=== PATIENT | female | born 1955 | race Caucasian/White ===

== ENCOUNTER 2022-12-05 19:02 | Observation (INO) | payer MEDICARE, BC, SELFPAY ==
[2022-12-05] VITALS (23 sets, daily range): BP systolic 135–190; BP diastolic 78–110; PULSE 73–95; RESP 16; TEMP 36.1; O2SAT 90–99; BMI 23.4
--- NOTE | 2022-12-05 19:29 | CRLHL7_ITS ---
For Patients: As a result of the Century Cures Act, medical imaging exams and procedure reports are released immediately into your electronic medical record. You may view this report before your referring provider. If you have questions, please contact your health care provider. INDICATION: Tingling in the arms and face. COMPARISON: None available. TECHNIQUE: CT examination of the head was performed with 3 mm thick axial and 2 mm thick coronal and sagittal sections without intravenous contrast. Images were obtained from the vertex of the skull through the skull base, and I examined the images with the brain and bone windows. Please note that all CT scans at this facility use dose modulation, iterative reconstruction, and/or weight-based dosing when appropriate to reduce radiation dose to as low as reasonably achievable. FINDINGS: : There is mild dilatation of the ventricles and sulci representing age-appropriate atrophy. There is mild periventricular and subcortical white matter hypodensity representing age-appropriate small vessel ischemia. The brain is otherwise normal in appearance for the patient`s age on today`s study, with no sign of mass lesion, mass effect, hemorrhage, or edema. Incidental note is made of heavy focal calcification of the anterior falx, of no clinical concern. There are changes of right cataract surgery. The left orbit is normal in appearance. There is mild mucosal thickening in the left maxillary sinus from mild chronic sinusitis. The rest of the visualized portions of the paranasal sinuses and mastoids are clear. The osseous structures are normal in their appearance with no sign of abnormality in the skull base or calvarium. IMPRESSION: Normal noncontrast CT appearance of the brain for the patient`s age. Mild, age-appropriate atrophy and mild, age-appropriate small-vessel ischemic change. Please note that all CT scans at this facility use dose modulation, iterative reconstruction, and/or weight-based dosing when appropriate to reduce radiation dose to as low as reasonably achievable. Dictated by Fidel Mancera MD @ 12/05/2022 7:57:23 PM (Electronically Signed)
--- NOTE | 2022-12-05 19:29 | CRLHL7_ITS ---
For Patients: As a result of the Century Cures Act, medical imaging exams and procedure reports are released immediately into your electronic medical record. You may view this report before your referring provider. If you have questions, please contact your health care provider. DATE: 12/05/2022. CLINICAL HISTORY: Tingling in upper extremities and face. TECHNIQUE: Standard helical CT image acquisition through the head and neck was performed after intravenous contrast bolus enhancement. Multiplanar reconstructed images were performed and interpreted. COMPARISON: None available. FINDINGS: The origins of the great vessels from the aortic arch are patent. The origins of the right and left vertebral arteries are patent. The common carotid arteries are patent. No significant luminal stenoses of the proximal internal carotid arteries by NASCET criteria. The more distal cervical segments of the internal carotid arteries are patent. The cervical segments of the vertebral arteries are patent. No intracranial proximal large vessel occlusion or flow-limiting luminal stenosis. No evidence of cerebral aneurysm or findings to suggest an arteriovenous shunting lesion. IMPRESSION: 1. No intracranial proximal large vessel occlusion or flow-limiting luminal stenosis. 2. Patent cervical arterial vasculature without hemodynamically significant luminal stenosis. Please note that all CT scans at this facility use dose modulation, iterative reconstruction, and/or weight-based dosing when appropriate to reduce radiation dose to as low as reasonably achievable. Dictated by Thiago France MD @ 12/06/2022 11:34:16 AM (Electronically Signed)
--- NOTE | 2022-12-05 19:32 | ED.NURSE ---
Patient to CT via wheelchair.
[2022-12-05] MEDS: ASPIRIN 81 MG TAB.CHEW 324 MG PO (20:16)
--- NOTE | 2022-12-05 20:26 | ED.NURSE ---
Patient reports symptoms started at 1700 and last till approximately 1830. She states they have nearly resolved by the time she arrived but continues to have tingling near her mouth and her left finger tips. Sensation is intact.
[2022-12-05] MEDS: SODIUM CHLORIDE 0.9 % (FLUSH) 10 ML SYRINGE 5 ML IVF (20:38)
--- NOTE | 2022-12-05 20:39 | ED.NURSE ---
20:15: Patient passed swallow screening.
[2022-12-05 20:42] LABS: Chloride* 100 mmol/L (96-114); Sodium* 135 mmol/L (135-149)
[2022-12-05 20:44] LABS: Basophils Absolute Auto 0.02 K/uL (0.00-0.30); Basophils Percent Auto 0.3 % (0.0-3.0); Eosinophils Absolute Auto 0.09 K/uL (0.00-0.50); Eosinophils Percent Auto 1.5 % (0.0-7.0); Hematocrit 42.2 % (33.0-51.0); Hemoglobin* 14.1 gm/dL (12.0-16.0); Immature Granulocytes Abs Auto 0.04 K/uL (0.00-0.30); Immature Granulocytes Pct Auto 0.7 %; Lymphocytes Absolute Auto 1.64 K/uL (0.90-2.90); Lymphocytes Percent Auto 27.9 % (20-44); Mean Corpuscular HGB Conc 33 gm/dL (32-36); Mean Corpuscular Hemoglobin 34 pg (26-34); Mean Corpuscular Volume 101 fL (80-100); Monocytes Percent Auto 9.2 % (0.0-11.0); Neutrophils Absolute Auto 3.55 K/uL (1.7-7.0); Neutrophils Percent Auto 60.4 % (42.0-72.0); Platelet Count* 245 K/uL (140-440); RDW Coefficient of Variation % 12.4 % (11.5-15.5); Red Blood Count 4.19 m/uL (4.00-5.20); Slide Review Reflex No; White Blood Count* 5.88 K/uL (4.50-11.00)
[2022-12-05 20:45] LABS: Blood Urea Nitrogen* 22 mg/dL (7-30); Calcium* 9.8 mg/dL (8.4-10.6); Carbon Dioxide* 26 mmol/L (20-32); Estimated Glomerular Filt Rate 63 ml/min; Glucose* 116 mg/dL (60-115); Potassium* 3.9 mmol/L (3.6-5.1)
[2022-12-05 20:48] LABS: INR 0.88 (0.91-1.10); Prothrombin Time 12.5 Seconds
--- NOTE | 2022-12-05 20:48 | ED.NURSE ---
Patient pressed call light and reported redness/increased tingling to fingers 3-5. She states the tingling is intermittent to the fingers. Fingers appear mildly red on assessment. CMS intact. Will continue to monitor.
[2022-12-05 20:49] LABS: Partial Thromboplastin Time* 28 Seconds (23-33)
[2022-12-05 21:09] LABS: PCR FLU A Negative PCR FLU A (Negative); PCR FLU B Negative PCR FLU B (Negative); PCR RSV Negative PCR RSV (Negative)
[2022-12-05 21:10] LABS: SARS PCR* Negative SARS-CoV-2 (Negative)
[2022-12-05 21:15] LABS: Troponin I* < 0.01 ng/mL (0.01-0.04)
--- NOTE | 2022-12-05 21:38 | ED_ITS ---
HPI - Neuro Symptoms/Deficit General Date Seen: 12/05/22 Chief Complaint: Neuro Symptoms/Altered Deficit Stated Complaint: Left side and face going numb Time Seen by Provider: 12/05/22 19:56 Source: patient and family Mode of arrival: ambulatory Limitations: no limitations History of Present Illness HPI Narrative: Patient is a 67-year-old female who presents 45 minutes after she had onset of left facial altered sensation left arm altered sensation, this is not noted to be with the weakness, she was not slurring her words, and there is no facial asymmetry noted with this, she was actually doing dishes when this occurred, she did not drop the dishes just noted that through her left non dominant arm that she had this weird feeling. She describes it as numbness and tingling, and has been pretty well totally resolved at this point. Total time being like this was approximately 1-1/2 hours. She has never before had this this was not associated with any chest pain, headache, visual disturbances, speech issues, shaking, or other issue. She does have a history of hypertension is no previous history of stroke but a family member her father had a stroke at age 70. She is a retired nurse. Timing confirmed by: spouse and family member Location: left face and left arm History of same: No Severity: mild Quality: numb and tingling Relieving factors: time Exacerbating factors: none Context: sudden onset On Anticoagulants: No Associated symptoms: denies other symptoms Treatments Prior to Arrival: none Related Data Home Medications Medication Instructions Recorded Confirmed amlodipine 2.5 mg tablet 2.5 mg PO DAILY 12/05/22 12/05/22 atorvastatin 10 mg tablet 5 mg PO HS 12/05/22 12/05/22 calcium carbonate-vitamin D3 1 tab PO BID 12/05/22 12/05/22 levothyroxine 112 mcg tablet 112 mcg PO DAILY 12/05/22 12/05/22 losartan 50 mg tablet 50 mg PO DAILY 12/05/22 12/05/22 meloxicam 15 mg tablet 15 mg PO DAILY 12/05/22 12/05/22 omeprazole 20 mg capsule,delayed 20 mg PO BID 12/05/22 12/05/22 release Allergies Allergy/AdvReac Type Severity Reaction Status Date / Time Penicillins Allergy Severe Anaphylaxis Verified 12/05/22 19:17 erythromycin base Allergy Mild rash Verified 12/05/22 19:17 Review of Systems Status of ROS: Reports: 10 or more systems reviewed and unremarkable except as noted in History and below Exam Narrative: Exam Narrative: Patient is S peaking normally, no problem with slurring words, oriented x3. Head eyes ears nose and throat exam show equal pupils, no scleral icterus, extraocular muscles are normal, no facial droop, speech is normal, trachea normal and midline. Patient able to whistle with no problems at all, her speech is otherwise normal, person place and time is totally normal. Thyroid normal midline palpable not enlarged. Chest shows symmetrical rise bilaterally, normal auscultation with no wheezes, no increased work of breathing, no overt bruising or lesions seen, no tenderness is noted on auscultation. Heart sounds normal with no S3-S4 no murmurs clicks or gallops. Abdomen shows no obvious masses or hepatosplenomegaly, no organomegaly, bowel sounds are normal in all quadrants. No tenderness is noted also in all quadrants. Upper and lower extremities show normal power, normal range of motion, pulses are normal, sensations normal, fine motor movements are normal, pelvis is stable to rocking. Cervical spine shows normal range of motion, and palpably not tender. Thoracic spine shows normal range of motion, and palpably not tender, lumbar spine shows no tenderness to palpation percussion and is otherwise normal range of motion. Skin shows no rashes, petechiae or eccymosis. No pronator drift is noted, and she has good strength in upper lower extremities. Stroke scale is 0 Const: Vital Signs, click to edit/add: Vital Signs - 24 hr 12/05/22 19:11 12/05/22 20:00 12/05/22 20:15 Temperature 97.0 F L Pulse Rate Pulse Rate [Right Pulse Oximeter] 82 87 75 Respiratory Rate 16 16 16 Blood Pressure Blood Pressure [Ri ght Upper Arm] 190/97 H 180/104 H 157/94 H Pulse Oximetry 97 99 92 Oxygen Delivery Me thod Room Air Room Air 12/05/22 20:25 12/05/22 20:38 12/05/22 20:45 Temperature Pulse Rate 81 73 79 Pulse Rate [Right Pulse Oximeter] Respiratory Rate Blood Pressure Blood Pressure [Ri ght Upper Arm] Pulse Oximetry 93 94 93 Oxygen Delivery Me thod 12/05/22 20:47 12/05/22 20:48 12/05/22 21:00 Temperature Pulse Rate 90 91 80 Pulse Rate [Right Pulse Oximeter] Respiratory Rate 16 Blood Pressure 141/79 H Blood Pressure [Ri ght Upper Arm] Pulse Oximetry 95 95 91 Oxygen Delivery Me thod Room Air 12/05/22 21:02 12/05/22 21:15 12/05/22 21:17 Temperature Pulse Rate 86 87 85 Pulse Rate [Right Pulse Oximeter] Respiratory Rate 16 Blood Pressure 157/95 H 136/78 Blood Pressure [Ri ght Upper Arm] Pulse Oximetry 95 90 94 Oxygen Delivery Me thod Room Air 12/05/22 21:30 12/05/22 21:32 12/05/22 21:45 Temperature Pulse Rate 83 95 81 Pulse Rate [Right Pulse Oximeter] Respiratory Rate Blood Pressure 165/90 H Blood Pressure [Ri ght Upper Arm] Pulse Oximetry 92 94 92 Oxygen Delivery Me thod 12/05/22 22:00 12/05/22 22:02 Temperature Pulse Rate 82 89 Pulse Rate [Right Pulse Oximeter] Respiratory Rate Blood Pressure 135/110 H Blood Pressure [Ri ght Upper Arm] Pulse Oximetry 94 96 Oxygen Delivery Me thod Documenting provider has reviewed patient's vital signs: yes Course Course Hospital Course: Head CT and CTA were negative per Radiology. I spoke to Stroke Neuro at [facility], Dr. Hansen, he favored a diagnosis of TIA, with the resolution, he said most times a like to keep these overnight, and get MRI in the morning given the time course of 1-1/2 hours, but he would also be okay with outpatient workup, if she totally resolved and was comfortable with this. Went back in and talked to patient she had just a slight bit of numbness around her lips on the left side, but otherwise was back to a baseline. This is 1-1/2 hours after onset. Reevaluation(s) Reevaluation #1: Patient says she has 1/10 it tingling on her face, this is improved from the 8/10 tingling on her face and her left arm she had initially, she has no ext remity symptoms now, feels much improved, I went over her laboratory tests with her. At this point, given the Stroke Neuro suggestion we will admit her to the hospital, I spoke to Dr. Velasquez from Hospital Medicine, relayed suggestions from Stroke Neuro, for MRI tomorrow, along with workup up the neck, an echo. I do agree that it seemed like 325 of aspirin a day was a bit of a large dose going forward, we can confirm with Neurology tomorrow. Patient is in agreement with this plan. Vital Signs Vital signs: Initial Vital Signs Temperature 97.0 F L 12/05/22 19:11 Temperature Source Temporal Artery Scan 12/05/22 19:11 Pulse Rate 82 12/05/22 19:11 Respiratory Rate 16 12/05/22 19:11 Blood Pressure 190/97 H 12/05/22 19:11 Blood Pressure Mean 128 12/05/22 19:11 Blood Pressure Position Sitting 12/05/22 19:11 Pulse Oximetry 97 12/05/22 19:11 Oxygen Delivery Method 12/05/22 19:11 Vital Signs Temperature 97.0 F L 12/05/22 19:11 Pulse Rate 82 12/05/22 19:11 Respiratory Rate 16 12/05/22 19:11 Blood Pressure 190/97 H 12/05/22 19:11 Pulse Oximetry 97 12/05/22 19:11 Oxygen Delivery Method 12/05/22 19:11 Temperature 97.0 F L 12/05/22 19:11 Pulse Rate 89 12/05/22 22:02 Respiratory Rate 16 12/05/22 21:17 Blood Pressure 135/110 H 12/05/22 22:02 Pulse Oximetry 96 12/05/22 22:02 Oxygen Delivery Method 12/05/22 21:17 MDM - Neuro Symptoms/Deficit MDM Narrative Medical decision making narrative: Multiple differential diagnoses were considered for altered mental status. The life-threatening differential diagnosis considered include: Meningitis/encephalitis, bacteremia, subdural, cerebrovascular accident, SAH, and hypertensive encephalopathy. Other differential diagnosis included include medication effect, hypoxia, hypoglycemia, hypercalcemia, hypo or hypernatremia, hypothyroidism, hepatic encephalopathy, carbon monoxide poisoning, UTI, pneum onia, depression, seizure, as well as other etiologies. Medical Records Attestation: I reviewed the patient's medical records. Lab Data Attestation: I reviewed the patient's lab results. Labs: Lab Results 12/05/22 12/05/22 12/05/22 Range/Units 20:00 20:16 20:16 WBC 5.88 (4.50-11.00) K/uL RBC 4.19 (4.00-5.20) m/uL Hgb 14.1 (12.0-16.0) gm/dL Hct 42.2 (33.0-51.0) % MCV 101 H (80-100) fL MCH 34 (26-34) pg MCHC 33 (32-36) gm/dL RDW Coeff of Leonela 12.4 (11.5-15.5) % Plt Count 245 (140-440) K/uL Neut % (Auto) 60.4 (42.0-72.0) % Lymph % (Auto) 27.9 (20-44) % Ransom % (Auto) 9.2 (0.0-11.0) % Eos % (Auto) 1.5 (0.0-7.0) % Baso % (Auto) 0.3 (0.0-3.0) % Neut # (Auto) 3.55 (1.7-7.0) K/uL Lymph # (Auto) 1.64 (0.90-2.90) K/uL Ransom # (Auto) 0.50 (0.00-0.90) K/UL Eos # (Auto) 0.09 (0.00-0.50) K/uL Baso # (Auto) 0.02 (0.00-0.30) K/uL INR (0.91-1.10) APTT (23-33) Seconds Sodium 135 (135-149) mmol/L Potassium 3.9 (3.6-5.1) mmol/L Chloride 100 (96-114) mmol/L Carbon Dioxide 26 (20-32) mmol/L BUN 22 (7-30) mg/dL Creatinine 1.0 (0.5-1.5) mg/dL Estimated Creat Clear 46.40 Estimated GFR 63 ml/min Glucose 116 H (60-115) mg/dL Calcium 9.8 (8.4-10.6) mg/dL Troponin I < 0.01 L (0.01-0.04) ng/mL SARS-CoV-2 (PCR) (Negative) Influenza Type A (PCR) (Negative) Influenza Type B (PCR) (Negative) RSV (PCR) (Negative) 12/05/22 12/05/22 Range/Units 20:17 20:20 WBC (4.50-11.00) K/uL RBC (4.00-5.20) m/uL Hgb (12.0-16.0) gm/dL Hct (33.0-51.0) % MCV (80-100) fL MCH (26-34) pg MCHC (32-36) gm/dL RDW Coeff of Leonela (11.5-15.5) % Plt Count (140-440) K/uL Neut % (Auto) (42.0-72.0) % Lymph % (Auto) (20-44) % Ransom % (Auto) (0.0-11.0) % Eos % (Auto) (0.0-7.0) % Baso % (Auto) (0.0-3.0) % Neut # (Auto) (1.7-7.0) K/uL Lymph # (Auto) (0.90-2.90) K/uL Ransom # (Auto) (0.00-0.90) K/UL Eos # (Auto) (0.00-0.50) K/uL Baso # (Auto) (0.00-0.30) K/uL INR 0.88 L (0.91-1.10) APTT 28 (23-33) Seconds Sodium (135-149) mmol/L Potassium (3.6-5.1) mmol/L Chloride (96-114) mmol/L Carbon Dioxide (20-32) mmol/L BUN (7-30) mg/dL Creatinine (0.5-1.5) mg/dL Estimated Creat Clear Estimated GFR ml/min Glucose (60-115) mg/dL Calcium (8.4-10.6) mg/dL Troponin I (0.01-0.04) ng/mL SARS-CoV-2 (PCR) Negative SARS-CoV-2 (Negative) Influenza Type A (PCR) Negative PCR FLU A (Negative) Influenza Type B (PCR) Negative PCR FLU B (Negative) RSV (PCR) Negative PCR RSV (Negative) ECG Data Attestation: I personally reviewed and interpreted this ECG as follows: ECG interpretation date: 12/05/22 Interpretation: Normal sinus rhythm normal EKG no acute change Discharge Plan Discharge Clinical Impression: Transient cerebral ischemia Patient Disposition: Admitted As Inpatient Condition: Improved Prescriptions: No Action amlodipine 2.5 mg tablet 2.5 mg PO DAILY Label Comments: TAKE 1 TABLET (2.5 MG TOTAL) BY MOUTH DAILY. atorvastatin 10 mg tablet 5 mg PO HS Label Comments: TAKE 1/2 TABLET BY MOUTH AT BEDTIME calcium carbonate-vitamin D3 [Calcium 500 + D] 1 tab PO BID levothyroxine 112 mcg tablet 112 mcg PO DAILY Label Comments: TAKE ONE TABLET BY MOUTH ONCE DAILY losartan 50 mg tablet 50 mg PO DAILY Label Comments: TAKE 1 TABLET BY MOUTH EVERY DAY meloxicam 15 mg tablet 15 mg PO DAILY Label Comments: TAKE 1 TABLET (15 MG TOTAL) BY MOUTH DAILY. omeprazole 20 mg capsule,delayed release(DR/EC) 20 mg PO BID Label Comments: TAKE 1 CAPSULE (20 MG TOTAL) BY MOUTH 2 (TWO) TIMES A DAY BEFORE BREAKFAST AND DINNER. Follow Up/Referrals: Provider,Not a Local [Primary Care Provider] -
[2022-12-05] MEDS: LORazepam 0.5 MG TABLET PO (22:23)
--- NOTE | 2022-12-05 22:59 | ED.NURSE ---
Report to [facility]. Patient will be going to room 262.
--- NOTE | 2022-12-05 23:23 | P.IMHP_ITS ---
Hospitalist- H&P: HPI History of Present Illness Time Seen by Provider: 11:15 Date Seen: 12/06/22 Chief complaint: Left side and face going numb Narrative: Carey Chun is a 67 year old female with history of hypertension and hypercholesterolemia who developed sudden onset left-sided numbness and left arm tingling at 5:30 p.m.. She has never had anything like this before. She was feeling her usual self, making dinner, when she suddenly felt that the left side of her face was numb and her left arm felt tingly like it was going to fall asleep. She continued to make dinner and then sat down and ate a big meal. She had no difficulties swallowing or speaking. She had no confusion. After dinner she told her that she did not feel right and she came to the emergency department with these symptoms. Her symptoms started to improve while she was i n the ER. Currently she notes a tiny spot on her left upper lip that still feels numb and intermittent tingling of her fingertips of the left hand. She denies any other focal symptoms. She denies headache or vision changes. She denies chest pain or shortness of breath. She does have a history of anxiety and wondered if her symptoms were possibly consistent with that. She also has a history of hypertension and hypercholesterolemia. Few months ago she stopped taking atorvastatin because she was reading about cholesterol and decided that she did not need it. She is agreeable to go back on it even at higher dose and denies any history of adverse effects from it. Review of Systems Status of ROS: Reports: 10 or more systems reviewed and unremarkable except as noted in History and below PFSH PFS Medical History (Updated 12/05/22 @ 23:18 by Debbie Velasquez MD) Cataract Eczema GERD (gastroesophageal reflux disease) Hyperlipidemia Hypertension Hypothyroidism Surgical History (Updated 12/05/22 @ 23:18 by Debbie Velasquez MD) H/O section (~1978) S/P bunionectomy (~2005) S/P colonoscopy (03/29/22) Trigger finger, right Family History (Updated 12/05/22 @ 23:22 by Debbie Velasquez MD) Father Coronary artery disease Diabetes CHF (congestive heart failure) High cholesterol High blood pressure Renal cancer Skin cancer Aunt Breast cancer Aunt Breast cancer Mother Osteoporosis Arthritis Sister Cervical cancer Skin cancer Metastatic squamous cell carcinoma Sister Cancer Social History (Updated 12/06/22 @ 00:30 by Debbie Velasquez MD) Narrative: . , Atul, is here with her tonight. Exercises 6 days a week. Lifelong nonsmoker. 1-2 vodka drinks a night. Denies having any withdrawal symptoms if she goes without. Denies recreational drug use. Wishes to be a full code. Smoking Status: Never smoker Do you use any of these nicotine containing products: None Second hand tobacco smoke exposure: No How often do you have a drink containing alcohol: 4 or more times a week How many standard drinks containing alcohol do you have on a typical day: 1 or 2 How often do you have six or more drinks on one occasion: Never AUDIT-C Alcohol total score: 4 Non-prescribed substance use: denies use service: No Meds Home Medications and Allergies Home Medications Medication Instructions Recorded Confirmed Type amlodipine 2.5 mg tablet 2.5 mg PO DAILY 12/05/22 12/05/22 History atorvastatin 10 mg tablet 5 mg PO HS 12/05/22 12/05/22 History calcium carbonate-vitamin D3 1 tab PO BID 12/05/22 12/05/22 History levothyroxine 112 mcg tablet 112 mcg PO DAILY 12/05/22 12/05/22 History losartan 50 mg tablet 50 mg PO DAILY 12/05/22 12/05/22 History meloxicam 15 mg tablet 15 mg PO DAILY 12/05/22 12/05/22 History omeprazole 20 mg capsule,delayed 20 mg PO BID 12/05/22 12/05/22 History release Allergies Allergy/AdvReac Type Severity Reaction Status Date / Time Penicillins Allergy Severe Anaphylaxis Verified 12/05/22 19:17 erythromycin base Allergy Mild rash Verified 12/05/22 19:17 Exam Narrative: Exam Narrative: General: No acute distress. Awake alert oriented x3. HEENT: Normocephalic atraumatic, pupils equally round and reactive to light and accommodation. Oropharynx clear. Mucous membranes are moist. No cervical lymphadenopathy, thyromegaly or carotid bruits. No JVD. Cardiovascular: Regular rate and rhythm. No murmurs, gallops, or rubs. Chest: No increased work of breathing. Clear to auscultation bilaterally. No crackles or wheezes. Abdomen: Bowel sounds present. Soft, nondistended, nontender. No hepat osplenomegaly or masses. Extremities: No edema, no cyanosis or clubbing. Skin: No jaundice, no pallor, no rashes. Neuro: She herself notes numbness at the left upper lip, not currently having left finger tip tingling. There are no other focal deficits. Romberg is negative. Cranial nerves 2-12 are intact. Extraocular movements are full. No nystagmus. No facial asymmetry. Tongue is midline. Peripheral vision and vision are grossly intact. Strength is 5/5 in all 4 extremities. Light touch sensation is intact in face body and extremities. Coordination is intact in upper and lower extremities. Const: Vital Signs, click to edit/add: Vital Signs - 24 hr 12/05/22 19:11 12/05/22 20:00 12/05/22 20:15 Temperature 97.0 F L Pulse Rate Pulse Rate [Right Pulse Oximeter] 82 87 75 Respiratory Rate 16 16 16 Blood Pressure Blood Pressure [Ri ght Upper Arm] 190/97 H 180/104 H 157/94 H Pulse Oximetry 97 99 92 Oxygen Delivery Me thod Room Air Room Air 12/05/22 20:25 12/05/22 20:38 12/05/22 20:45 Temperature Pulse Rate 81 73 79 Pulse Rate [Right Pulse Oximeter] Respiratory Rate Blood Pressure Blood Pressure [Ri ght Upper Arm] Pulse Oximetry 93 94 93 Oxygen Delivery Me thod 12/05/22 20:47 12/05/22 20:48 12/05/22 21:00 Temperature Pulse Rate 90 91 80 Pulse Rate [Right Pulse Oximeter] Respiratory Rate 16 Blood Pressure 141/79 H Blood Pressure [Ri ght Upper Arm] Pulse Oximetry 95 95 91 Oxygen Delivery Me thod Room Air 12/05/22 21:02 12/05/22 21:15 12/05/22 21:17 Temperature Pulse Rate 86 87 85 Pulse Rate [Right Pulse Oximeter] Respiratory Rate 16 Blood Pressure 157/95 H 136/78 Blood Pressure [Ri ght Upper Arm] Pulse Oximetry 95 90 94 Oxygen Delivery Me thod Room Air 12/05/22 21:30 12/05/22 21:32 12/05/22 21:45 Temperature Pulse Rate 83 95 81 Pulse Rate [Right Pulse Oximeter] Respiratory Rate Blood Pressure 165/90 H Blood Pressure [Ri ght Upper Arm] Pulse Oximetry 92 94 92 Oxygen Delivery Me thod 12/05/22 22:00 12/05/22 22:02 12/05/22 22:03 Temperature Pulse Rate 82 89 85 Pulse Rate [Right Pulse Oximeter] Respiratory Rate Blood Pressure 135/110 H Blood Pressure [Ri ght Upper Arm] Pulse Oximetry 94 96 92 Oxygen Delivery Me thod 12/05/22 22:15 12/05/22 22:30 12/05/22 22:31 Temperature Pulse Rate 81 84 82 Pulse Rate [Right Pulse Oximeter] Respiratory Rate 16 Blood Pressure 156/85 H Blood Pressure [Ri ght Upper Arm] Pulse Oximetry 94 94 90 Oxygen Delivery Me thod Room Air 12/05/22 22:45 Temperature Pulse Rate 76 Pulse Rate [Right Pulse Oximeter] Respiratory Rate Blood Pressure Blood Pressure [Ri ght Upper Arm] Pulse Oximetry 92 Oxygen Delivery Me thod Hospitalist - H&P: Result Labs Labs: Short CBC 12/05/22 Range/Units 20:16 WBC 5.88 (4.50-11.00) K/uL Hgb 14.1 (12.0-16.0) gm/dL Hct 42.2 (33.0-51.0) % Plt Count 245 (140-440) K/uL BMP 12/05/22 20:16 Sodium 135 Potassium 3.9 Chloride 100 Carbon Dioxide 26 BUN 22 Creatinine 1.0 Glucose 116 H Calcium 9.8 Cardiac Enzymes 12/05/22 Range/Units 20:00 Troponin I < 0.01 L (0.01-0.04) ng/mL 12/05/2022 7:53 p.m. EKG: Normal sinus rhythm. 86 beats per minute. Normal EKG. Ordering Physician: Arya Rojas M.D. Date of Service: 12/05/22 Procedure(s): CT head/brain wo con Accession Number(s): [id number] cc: Arya Rojas M.D.~ For Patients: As a result of the Century Cures Act, medical imaging exams and procedure reports are released immediately into your electronic medical record. You may view this report before your referring provider. If you have questions, please contact your health care provider. INDICATION: Tingling in the arms and face. COMPARISON: None available. TECHNIQUE: CT examination of the head was performed with 3 mm thick axial and 2 mm thick coronal and sagittal sections without intravenous contrast. Images were obtained from the vertex of the skull through the skull base, and I examined the images with the brain and bone windows. Please note that all CT scans at this facility use dose modulation, iterative reconstruction, and/or weight-based dosing when appropriate to reduce radiation dose to as low as reasonably achievable. FINDINGS: : There is mild dilatation of the ventricles and sulci representing age-appropriate atrophy. There is mild periventricular and subcortical white matter hypodensity representing age-appropriate small vessel ischemia. The brain is otherwise normal in appearance for the patient`s age on today`s study, with no sign of mass lesion, mass effect, hemorrhage, or edema. Incidental note is made of heavy focal calcification of the anterior falx, of no clinical concern. There are changes of right cataract surgery. The left orbit is normal in appearance. There is mild mucosal thickening in the left maxillary sinus from mild chronic sinusitis. The rest of the visualized portions of the paranasal sinuses and mastoids are clear. The osseous structures are normal in their appearance with no sign of abnormality in the skull base or calvarium. IMPRESSION: Normal noncontrast CT appearance of the brain for the patient`s age. Mild, age-appropriate atrophy and mild, age-appropriate small-vessel ischemic change. Please note that all CT scans at this facility use dose modulation, iterative reconstruction, and/or weight-based dosing when appropriate to reduce radiation dose to as low as reasonably achievable. Dictated by Fidel Mancera MD @ 12/05/2022 7:57:23 PM (Electronically Signed) Assessment and Plan Assessment and plan (1) Transient cerebral ischemia: Status: Acute (2) Hypertension: Status: Acute (3) Hyperlipidemia: Status: Acute (4) Hypothyroidism: Status: Acute Plan 67-year-old female with probable transient ischemic attack. CTA results are not finalized and I cannot view them, but Dr. Mon reported to me that they were unremarkable. CT head is unremarkable. EKG is normal sinus rhythm. Stroke neuro has recommended observation admission with telemetry, daily full-dose aspirin, and MRI. I have also ordered an echocardiogram and bilateral carotid ultrasound. I restarted her statin and will increase the dose as 5 was likely too low to be effective in the setting of stroke. I have also held her usual amlodipine to allow for permissive hypertension as her symptoms are not yet completely gone and I do not have the MRI results.
--- NOTE | 2022-12-05 23:28 | CRLHL7_ITS ---
For Patients: As a result of the Century Cures Act, medical imaging exams and procedure reports are released immediately into your electronic medical record. You may view this report before your referring provider. If you have questions, please contact your health care provider. INDICATION: Dizziness. TECHNIQUE: Multiplanar multisequence noncontrast MR images acquired through the brain. COMPARISON: CT brain 12/05/2022. FINDINGS: Punctate focus of diffusion restriction and FLAIR hyperintensity within the lateral right thalamus, compatible with acute to early subacute infarction. Prominence of the ventricles and sulci compatible with mild diffuse cerebral volume loss. No mass effect or midline shift. Scattered T2 FLAIR hyperintensities in the supratentorial white matter are nonspecific, though most typical for mild chronic microvascular ischemic changes. No intracranial hemorrhage or pathologic extra-axial fluid collection. The major arterial flow voids of the skullbase are preserved. Thinning of the right ocular lens. Mild lobulated left maxillary sinus mucosal thickening. Minimal mastoid fluid. IMPRESSION: 1. Punctate acute to early subacute infarction within the lateral right thalamus. 2. Mild chronic microvascular ischemic changes and diffuse cerebral volume loss. Dictated by Cresencio Sherman MD @ 12/06/2022 1:42:27 PM (Electronically Signed)
[2022-12-06 01:30] VITALS: PULSE 65
[2022-12-06] MEDS: LEVOTHYROXINE 112 MCG TABLET PO (07:13)
[2022-12-06 07:45] VITALS: BP 151/90; PULSE 82; RESP 16; TEMP 36.7; O2SAT 93
[2022-12-06] MEDS: ASPIRIN EC 325 MG TABLET PO (09:12)
[2022-12-06] MEDS: OMEPRAZOLE 20 MG CAPSULE DR PO (09:12)
[2022-12-06] MEDS: LOSARTAN POTASSIUM 50 MG TABLET PO (09:12)
--- NOTE | 2022-12-06 09:49 | PM.IMPN1 ---
Progress Note: A&P Assessment and plan (1) Transient cerebral ischemia: Problem details: CT reviewed. MRI brain this morning. Echo this afternoon. Starting statin of 20 mg daily today. Daily aspirin continuing. Likely will need outpatient follow-up to include Neurology and Cardiology. Telemetry has been quiet with normal sinus rhythm. Her blood pressures have been moderately elevated but within goal of arrest of hypertension. Her amlodipine is still on hold. She is taking her losartan. Status: Acute (2) Hypertension: Problem details: Holding amlodipine, continuing losartan. Allowing for permissive hypertension. Status: Acute (3) Hyperlipidemia: Problem details: Atorvastatin 20 mg p.o. daily Status: Acute (4) Hypothyroidism: Problem details: TSH is at goal. Continue home levothyroxine dosing. Status: Acute Subjective Date Seen: 12/06/22 Interval history: Daily Progress Note - Hospital Medicine Day #: 2 CC: Neurologic concerns regarding left facial tingling, left hand tingling and weakness. Possible stroke versus TIA OVERNIGHT UPDATES FROM STAFF & MED, LAB, IMAGING UPDATES Patient has had near resolution of all of her ankle symptoms from yesterday. This morning she denies headache. No nausea. The only remaining symptom is a very subtle left upper lip numbness. No chest pain. She is ambulating back and forth to the bathroom without assistance. She is able to carry on a conversation this morning and expressing her concerns regarding her hospital stay. Head CT Normal noncontrast CT appearance of the brain for the patient`s age. Mild, age-appropriate atrophy and mild, age-appropriate small-vessel ischemic change. Normal CTA of the neck. Blood pressure is mildly elevated at 160 2/95. Pulse 65. Rest per 16. Afebrile. Room air sats are 92%. Yesterday she had a CBC that was essentially unremarkable. MCV was a little elevated at 101. Her electrolytes were all normal yesterday. Respiratory panel was negative. Troponin was undetectable. Objective: Vitals: see above Lungs: Clear. Cardiac: S1S2. Neuro: Cranial nerves intact. Strength, coordination, gait all assessed in the room this morning and are all normal. Mental status is normal. She was able to count the months backwards. She was able to interpret correctly colloquialisms like, you can teach an old dog new tricks and ?and ?if you live in a glass house do not throw rocks? Disposition/Potential discharge - Likely to return to previous living situation. Total time is 35 minutes with greater than 50% spent in counseling and coordination of care. Exam Const: Vital Signs, click to edit/add: Vital Signs - 24 hr 12/05/22 19:11 12/05/22 20:00 12/05/22 20:15 Temperature 97.0 F L Pulse Rate Pulse Rate [Right Pulse Oximeter] 82 87 75 Respiratory Rate 16 16 16 Blood Pressure Blood Pressure [Le ft Arm] Blood Pressure [Ri ght Upper Arm] 190/97 H 180/104 H 157/94 H Pulse Oximetry 97 99 92 Oxygen Delivery Me thod Room Air Room Air 12/05/22 20:25 12/05/22 20:38 12/05/22 20:45 Temperature Pulse Rate 81 73 79 Pulse Rate [Right Pulse Oximeter] Respiratory Rate Blood Pressure Blood Pressure [Le ft Arm] Blood Pressure [Ri ght Upper Arm] Pulse Oximetry 93 94 93 Oxygen Delivery Me thod 12/05/22 20:47 12/05/22 20:48 12/05/22 21:00 Temperature Pulse Rate 90 91 80 Pulse Rate [Right Pulse Oximeter] Respiratory Rate 16 Blood Pressure 141/79 H Blood Pressure [Le ft Arm] Blood Pressure [Ri ght Upper Arm] Pulse Oximetry 95 95 91 Oxygen Delivery Me thod Room Air 12/05/22 21:02 12/05/22 21:15 12/05/22 21:17 Temperature Pulse Rate 86 87 85 Pulse Rate [Right Pulse Oximeter] Respiratory Rate 16 Blood Pressure 157/95 H 136/78 Blood Pressure [Le ft Arm] Blood Pressure [Ri ght Upper Arm] Pulse Oximetry 95 90 94 Oxygen Delivery Me thod Room Air 12/05/22 21:30 12/05/22 21:32 12/05/22 21:45 Temperature Pulse Rate 83 95 81 Pulse Rate [Right Pulse Oximeter] Respiratory Rate Blood Pressure 165/90 H Blood Pressure [Le ft Arm] Blood Pressure [Ri ght Upper Arm] Pulse Oximetry 92 94 92 Oxygen Delivery Me thod 12/05/22 22:00 12/05/22 22:02 12/05/22 22:03 Temperature Pulse Rate 82 89 85 Pulse Rate [Right Pulse Oximeter] Respiratory Rate Blood Pressure 135/110 H Blood Pressure [Le ft Arm] Blood Pressure [Ri ght Upper Arm] Pulse Oximetry 94 96 92 Oxygen Delivery Me thod 12/05/22 22:15 12/05/22 22:30 12/05/22 22:31 Temperature Pulse Rate 81 84 82 Pulse Rate [Right Pulse Oximeter] Respiratory Rate 16 Blood Pressure 156/85 H Blood Pressure [Le ft Arm] Blood Pressure [Ri ght Upper Arm] Pulse Oximetry 94 94 90 Oxygen Delivery Me thod Room Air 12/05/22 22:45 12/05/22 23:43 12/06/22 01:30 Temperature Pulse Rate 76 65 Pulse Rate [Right Pulse Oximeter] Respiratory Rate Blood Pressure Blood Pressure [Le ft Arm] 162/95 H Blood Pressure [Ri ght Upper Arm] Pulse Oximetry 92 Oxygen Delivery Me thod Labs Labs: Laboratory Results - last 24 hr 12/05/22 12/05/22 12/05/22 20:00 20:16 20:16 WBC 5.88 RBC 4.19 Hgb 14.1 Hct 42.2 MCV 101 H MCH 34 MCHC 33 RDW Coeff of Leonela 12.4 Plt Count 245 Neut % (Auto) 60.4 Lymph % (Auto) 27.9 [place] % (Auto) 9.2 Eos % (Auto) 1.5 Baso % (Auto) 0.3 Neut # (Auto) 3.55 Lymph # (Auto) 1.64 [place] # (Auto) 0.50 Eos # (Auto) 0.09 Baso # (Auto) 0.02 INR APTT Sodium 135 Potassium 3.9 Chloride 100 Carbon Dioxide 26 BUN 22 Creatinine 1.0 Estimated Creat Clear 46.40 Estimated GFR 63 Glucose 116 H Calcium 9.8 Troponin I < 0.01 L SARS-CoV-2 (PCR) Influenza Type A (PCR) Influenza Type B (PCR) RSV (PCR) 12/05/22 12/05/22 20:17 20:20 WBC RBC Hgb Hct MCV MCH MCHC RDW Coeff of Leonela Plt Count Neut % (Auto) Lymph % (Auto) [place] % (Auto) Eos % (Auto) Baso % (Auto) Neut # (Auto) Lymph # (Auto) [place] # (Auto) Eos # (Auto) Baso # (Auto) INR 0.88 L APTT 28 Sodium Potassium Chloride Carbon Dioxide BUN Creatinine Estimated Creat Clear Estimated GFR Glucose Calcium Troponin I SARS-CoV-2 (PCR) Negative SARS-CoV-2 Influenza Type A (PCR) Negative PCR FLU A Influenza Type B (PCR) Negative PCR FLU B RSV (PCR) Negative PCR RSV
[2022-12-06 10:29] LABS: Albumin* 4.8 g/dL (3.3-5.0)
[2022-12-06 10:32] LABS: Alanine Aminotransferase* 22 U/L (4-35); Alkaline Phosphatase* 76 U/L (40-150); Aspartate Amino Transferase* 35 U/L (12-35); Bilirubin Direct* 0.5 mg/dL (0.0-0.5); Bilirubin Total* 0.6 mg/dL (0.1-1.5); Cholesterol* 288 mg/dL (90-199); Total Protein* 8.1 g/dL (6.0-8.3); Triglycerides* 128 mg/dL (40-149)
[2022-12-06] MEDS: SODIUM CHLORIDE 0.9 % (FLUSH) 10 ML SYRINGE 5 ML IVF (10:32)
[2022-12-06 11:00] VITALS: BP 134/76; PULSE 90; RESP 16; TEMP 36.8; O2SAT 96
[2022-12-06] MEDS: ATORVASTATIN 10 MG TABLET 20 MG PO (12:49)
[2022-12-06 12:53] LABS: HDL Cholesterol* 153 mg/dL (>=50); LDL Cholesterol Calculated 109 mg/dL (<100)
[2022-12-06 15:00] VITALS: BP 127/97; PULSE 53; PULSE 97; RESP 16; O2SAT 98
--- NOTE | 2022-12-06 15:08 | P.DS_ITS ---
DS: Providers Provider Date Seen: 12/06/22 Date of admission: 12/05/22 23:02 Primary care physician: Not a Local Provider Admitting Clinician: Debbie Velasquez MD Attending Physician on discharge: Samanta Rowland MD [facility] Date of Discharge: 12/06/22 DS: Diagnosis Discharge Diagnosis (1) Lacunar infarct, acute: Status: Acute Problem details: Punctate right lacunar infarct. Sensory symptoms only. Resolved. Spoke with [facility]. Recommendation is for Plavix load followed by aspirin 81 mg daily with 75 mg of Plavix for 21 days. Optimal blood pressure management - follow-up outpatient neurology and cardiovascular are for her hypertension. (2) Hypothyroidism: Status: Acute Problem details: TSH is at goal. Continue home levothyroxine dosing. (3) Hyperlipidemia: Status: Acute Problem details: Unique cholesterol panel. She HDL greater than 150. Normal LDL. We are holding on a statin at this time. This can be addressed by her stroke team as an outpatient. (4) Hypertension: Status: Acute Problem details: Restarting both of her home medications. We allowed for permissive hypertension overnight. I have given her counseling on how to initially observe her high blood pressure and different reactions to life events and timing of medications and exercise. She can continue to follow with Cardiovascular Medicine or PCP. DS: Summary Hospital Course Hospital Course: HOSPITALIST DISCHARGE SUMMARY ATTENDING PHYSICIAN: Samanta Rowland MD FINAL DIAGNOSIS: Right thalamic infarct, punctate, subacute. Chronic microvascular changes HOSPITAL FOLLOWUP ISSUES: Stroke Neurology did - secondary stroke prevention. On dual anti-platelet and then single anti-platelet therapy Cardiology - follow-up on echo results, manage his cholesterol and high blood pressure per secondary stroke prevention guidelines REFERRALS WHILE ADMITTED: PT and OT REFERRALS AFTER DISCHARGE: As above stroke neuro and Cardiology BRIEF HOSPITAL COURSE: Patient is a 67-year-old active otherwise healthy woman who presented with symptoms of a TIA to our emergency room approximately 7:[address] on [address] scan. She mostly complained of sensory symptoms that included lip tingling and left hand tingling. These resolved over the 1st 90 minutes of presentation. Her CT, CTA were negative for acute bleed. As her symptoms were resolving or thrombolytics were not her considered. Overnight she was stable. Her blood pressure, purposefully, measured was mildly elevated. Her cholesterol this morning was unique in that her HDL is very high, his LDL is at goal. His MRI this morning shows a small subacute to acute or 2 right thalamic stroke. Her clinical symptoms have resolved. She was given aspirin yesterday and today as an inpatient. I am loading her with Plavix before discharge she will continue dual antiplatelet therapy for 21 days. I have asked our wardrobe image consultant to set up a stroke neuro and Cardiology appointments with the [facility] per the julianne saunders's request. SUBSTANTIVE NOTATIONS ON IMAGING, LAB, MICROBIOLOGY/PATHOLOGY STUDIES: Brain MRI 1. Punctate acute to early subacute infarction within the lateral right thalamus. 2. Mild chronic microvascular ischemic changes and diffuse cerebral volume loss. Neck CTA 1. No intracranial proximal large vessel occlusion or flow-limiting luminal stenosis. 2. Patent cervical arterial vasculature without hemodynamically significant luminal stenosis. Total cholesterol 288 Triglycerides 128 LDL 109 HDL 153 Blood pressures have been 160s max systolic, 90s diastolic DISCHARGE MEDICATIONS: See Reconciled list - SIGNIFICANT CHANGES: REVIEW OF SYSTEMS No new chest pain or dyspnea Pain controlled No voiding difficulties Tolerating diet challenge PHYSICAL EXAM: CONSTITUTIONAL: Alert. Insightful. No acute distress. VITAL SIGNS: see record. HEENT: Normocephalic, atraumatic. PERRL, EOMI, conjunctivae pink, no scleral icterus. Ears and nose externally normal. Pharynx normal. NECK: No JVD. No carotid bruit, no thyromegaly, no adenopathy. CHEST: Clear to auscultation bilaterally. HEART: S1 and S2 normal. Edema ABDOMEN: Soft, nontender. Normal bowel sounds. MUSCULOSKELETAL: No gross joint deformity or swelling. NEURO: Neuro exam is stable. There is no changes from my more complete exam documented this morning. SKIN: No rashes, petechiae, concerning changes PSYCHIATRIC: Mood euthymic. DISPOSITION: Home with Time spent on discharge 37 minutes. Status at Discharge Functional status at discharge: independent ambulation Overall status at discharge: patient is back to baseline Time Spent with Patient Time attestation: Total time spent providing and/or coordinating discharge services: Time spent: Greater than 30 minutes Exam Const: Vital Signs, click to edit/add: Vital Signs - 24 hr 12/05/22 19:11 12/05/22 20:00 12/05/22 20:15 Temperature 97.0 F L Pulse Rate Pulse Rate [Pulse Oximeter] Pulse Rate [Right Pulse Oximeter] 82 87 75 Respiratory Rate 16 16 16 Blood Pressure Blood Pressure [Le ft Arm] Blood Pressure [Ri ght Upper Arm] 190/97 H 180/104 H 157/94 H Pulse Oximetry 97 99 92 Oxygen Delivery Me od Room Air Room Air 12/05/22 20:25 12/05/22 20:38 12/05/22 20:45 Temperature Pulse Rate 81 73 79 Pulse Rate [Pulse Oximeter] Pulse Rate [Right Pulse Oximeter] Respiratory Rate Blood Pressure Blood Pressure [Le ft Arm] Blood Pressure [Ri ght Upper Arm] Pulse Oximetry 93 94 93 Oxygen Delivery Me thod 12/05/22 20:47 12/05/22 20:48 12/05/22 21:00 Temperature Pulse Rate 90 91 80 Pulse Rate [Pulse Oximeter] Pulse Rate [Right Pulse Oximeter] Respiratory Rate 16 Blood Pressure 141/79 H Blood Pressure [Le ft Arm] Blood Pressure [Ri ght Upper Arm] Pulse Oximetry 95 95 91 [facility] 12/05/22 21:02 12/05/22 21:15 12/05/22 21:17 Temperature Pulse Rate 86 87 85 Pulse Rate [Pulse Oximeter] Pulse Rate [Right Pulse Oximeter] Respiratory Rate 16 Blood Pressure 157/95 H 136/78 Blood Pressure [Le ft Arm] Blood Pressure [Ri ght Upper Arm] Pulse Oximetry 95 90 94 [facility] 12/05/22 21:30 12/05/22 21:32 12/05/22 21:45 Temperature Pulse Rate 83 95 81 Pulse Rate [Pulse Oximeter] Pulse Rate [Right Pulse Oximeter] Respiratory Rate Blood Pressure 165/90 H Blood Pressure [Le ft Arm] Blood Pressure [Ri ght Upper Arm] Pulse Oximetry 92 94 92 Oxygen Delivery Me od 12/05/22 22:00 12/05/22 22:02 12/05/22 22:03 Temperature Pulse Rate 82 89 85 Pulse Rate [Pulse Oximeter] Pulse Rate [Right Pulse Oximeter] Respiratory Rate Blood Pressure 135/110 H Blood Pressure [Le ft Arm] Blood Pressure [Ri ght Upper Arm] Pulse Oximetry 94 96 92 Oxygen Delivery Me thod 12/05/22 22:15 12/05/22 22:30 12/05/22 22:31 Temperature Pulse Rate 81 84 82 Pulse Rate [Pulse Oximeter] Pulse Rate [Right Pulse Oximeter] Respiratory Rate 16 Blood Pressure 156/85 H Blood Pressure [Le ft Arm] Blood Pressure [Ri ght Upper Arm] Pulse Oximetry 94 94 90 Oxygen Delivery Me thod Room Air 12/05/22 22:45 12/05/22 23:43 12/06/22 01:30 Temperature Pulse Rate 76 65 Pulse Rate [Pulse Oximeter] Pulse Rate [Right Pulse Oximeter] Respiratory Rate Blood Pressure Blood Pressure [Le ft Arm] 162/95 H Blood Pressure [Ri ght Upper Arm] Pulse Oximetry 92 Oxygen Delivery Me thod 12/06/22 07:45 12/06/22 11:00 Temperature 98.0 F 98.3 F Pulse Rate Pulse Rate [Pulse Oximeter] 82 90 Pulse Rate [Right Pulse Oximeter] Respiratory Rate 16 16 Blood Pressure Blood Pressure [Le ft Arm] 151/90 H 134/76 Blood Pressure [Ri ght Upper Arm] Pulse Oximetry 93 96 Oxygen Delivery Me thod Room Air Room Air DS: Data Data Completed and Pending Labs on day of discharge: Labs from last 24 hours 12/05/22 12/05/22 12/05/22 20:20 20:17 20:16 WBC RBC Hgb Hct MCV MCH MCHC RDW Coeff of Leonela Plt Count Neut % (Auto) Lymph % (Auto) [place] % (Auto) Eos % (Auto) Baso % (Auto) Neut # (Auto) Lymph # (Auto) [place] # (Auto) Eos # (Auto) Baso # (Auto) INR 0.88 L APTT 28 Sodium 135 Potassium 3.9 Chloride 100 Carbon Dioxide 26 BUN 22 Creatinine 1.0 Estimated Creat Clear 46.40 Estimated GFR 63 Glucose 116 H Calcium 9.8 Total Bilirubin 0.6 Direct Bilirubin 0.5 AST 35 ALT 22 Alkaline Phosphatase 76 Troponin I Total Protein 8.1 Albumin 4.8 Triglycerides 128 Cholesterol 288 H LDL Cholesterol, Calc 109 H HDL Cholesterol 153 SARS-CoV-2 (PCR) Negative SARS-CoV-2 Influenza Type A (PCR) Negative PCR FLU A Influenza Type B (PCR) Negative PCR FLU B RSV (PCR) Negative PCR RSV 12/05/22 12/05/22 20:16 20:00 WBC 5.88 RBC 4.19 Hgb 14.1 Hct 42.2 MCV 101 H MCH 34 MCHC 33 RDW Coeff of Leonela 12.4 Plt Count 245 Neut % (Auto) 60.4 Lymph % (Auto) 27.9 [place] % (Auto) 9.2 Eos % (Auto) 1.5 Baso % (Auto) 0.3 Neut # (Auto) 3.55 Lymph # (Auto) 1.64 [place] # (Auto) 0.50 Eos # (Auto) 0.09 Baso # (Auto) 0.02 INR APTT Sodium Potassium Chloride Carbon Dioxide BUN Creatinine Estimated Creat Clear Estimated GFR Glucose Calcium Total Bilirubin Direct Bilirubin AST ALT Alkaline Phosphatase Troponin I < 0.01 L Total Protein Albumin Triglycerides Cholesterol LDL Cholesterol, Calc HDL Cholesterol SARS-CoV-2 (PCR) Influenza Type A (PCR) Influenza Type B (PCR) RSV (PCR) Discharge Plan Discharge Disposition: Home, Self-Care Date of Admission: 12/05/22 23:02 Attending Provider on Discharge: Samanta Rowland Primary Care Provider: Provider,Not a Local Condition: Improved Anticipated Discharge Date/Time: 12/06/22 13:33 Discharge Medications: New aspirin 81 mg Tablet,Delayed Release (Dr/Ec) 81 mg PO DAILY Qty: 30 0RF atorvastatin [Lipitor] 20 mg tablet 20 mg PO DAILY Qty: 30 2RF clopidogrel [Plavix] 75 mg tablet 75 mg PO DAILY Qty: 20 0RF Rx Instructions: take daily with an 81mg aspirin for 20 days. Then just a daily aspirin. Continued amlodipine 2.5 mg tablet 2.5 mg PO DAILY Label Comments: TAKE 1 TABLET (2.5 MG TOTAL) BY MOUTH DAILY. calcium carbonate-vitamin D3 [Calcium 500 + D] 1 tab PO BID levothyroxine 112 mcg tablet 112 mcg PO DAILY Label Comments: TAKE ONE TABLET BY MOUTH ONCE DAILY losartan 50 mg tablet 50 mg PO DAILY Label Comments: TAKE 1 TABLET BY MOUTH EVERY DAY meloxicam 15 mg tablet 15 mg PO DAILY Label Comments: TAKE 1 TABLET (15 MG TOTAL) BY MOUTH DAILY. omeprazole 20 mg capsule,delayed release(DR/EC) 20 mg PO BID Label Comments: TAKE 1 CAPSULE (20 MG TOTAL) BY MOUTH 2 (TWO) TIMES A DAY BEFORE BREAKFAST AND DINNER. Discontinued atorvastatin 10 mg tablet 5 mg PO HS Label Comments: TAKE 1/2 TABLET BY MOUTH AT BEDTIME Discharge Orders: Discharge Order (Routine); Ordered 12/06/22 Ordered By: Samanta Rowland Additional Instructions: 1. I sent the Lipitor (statin) to the pharmacy. Don't pick this up or take it for now. Sent earlier in the day before my 2nd visit. 2. Plavix 75mg and 81mg Aspirin daily for 20 days; then aspirin only 3. F/U with [facility] 4. Take your blood pressure twice a day in different circumstances (3 am, during or after exercise, after a salty meal, feeling a headache, etc) - write down a few notes. 5. Limit alcohol to 1 serving of alcohol daily, no more than 7 a week. Activity Level: Activity as Tolerated Discharge Diet: Regular Follow Up Appointments: [facility] [Provider Group] (Three appointments: [facility]: Maggy Hernandez ([facility]) [place], [facility] (no provider preference) Next Available, PCP (below) 2 weeks Sophia Mcmillan P.A.-C. [address] [place] [phone] Internal Medicine) Forms: Socitive Info Instructions
[2022-12-06] MEDS: CLOPIDOGREL 75 MG TABLET 300 MG PO (15:15)
--- NOTE | 2022-12-06 18:54 | PC.NURSE ---
Pt alert and oriented x3, neuro checks Q4H with normal limits. Pt denies pain, SOB, Chest pain, N/V, and headache. Pt up IND. Pt tolerating regular diet. Pt IV taken out at discharge. Verbal and written education given to pt and , verbalized understanding. Pt denied wheel chair and ambulated out with .
== END 2022-12-06 18:25 | disposition home or self-care (01) ==
LOC: ED 22:25 → MEDSURG 23:03
PROVIDERS: Family Medicine; Admitting Provider Family Medicine; Emergency Provider Family Medicine; Visit Provider Family Medicine
DX: G45.9 Transient cerebral ischemic attack, unspecified (principal); I63.81 Other cerebral infarction due to occlusion or stenosis of small artery; E78.00 Pure hypercholesterolemia, unspecified; R20.8 Other disturbances of skin sensation; R20.2 Paresthesia of skin; R53.1 Weakness; E03.9 Hypothyroidism, unspecified; I10 Essential (primary) hypertension; K21.9 Gastro-esophageal reflux disease without esophagitis; Z98.890 Other specified postprocedural states; Z87.898 Personal history of other specified conditions; Z82.49 Family history of ischemic heart disease and other diseases of the circulatory system
CPT/HCPCS: 36415; 70450; 70496; 70498; 70551; 80048; 80061; 80076; 84484; 85025; 85610; 85730; 87502; 87634; 87635; 93005; 93306; 99285; G0378; A9270; Q9967